=== PATIENT | female | born 1990 | race American Indian/Alaskan Native ===

== ENCOUNTER 2017-03-15 12:55 | Emergency (ER) | payer BC, MEDICAID ==
[2017-03-15 13:33] VITALS: BMI 29.2
--- NOTE | 2017-03-15 13:42 | C.PDOC ---
History Of Present Illness 26 yo female, no prior hx, presents with vaginal bleeding. as per pt, had "an irregular period" last week, which was "light". pt now states she has mild spotting. pt denies heavy bleeding. pt denies any fevers, urinary changes, or discharge. pt states she is sexually active, and "could be ". pt states she was unable to get a outpt OB appointment, so came to er. Time Seen by Provider: 03/15/17 13:21 Chief Complaint (Nursing): Female Genitourinary Past Medical History Reviewed: Historical Data, Nursing Documentation, Vital Signs Family History: States: Unknown Family Hx - Social History Hx Tobacco Use: Yes Hx Alcohol Use: Yes Hx Substance Use: No - Immunization History Hx Tetanus Toxoid Vaccination: No Hx Influenza Vaccination: No Hx Pneumococcal Vaccination: No Review Of Systems Gastrointestinal: Positive for: Abdominal Pain Genitourinary: Positive for: Vaginal Bleeding Physical Exam - Physical Exam Appears: Well, No Acute Distress Skin: Normal Color, Warm, Dry Eye(s): bilateral: Normal Inspection, PERRL, EOMI Nose: Normal Throat: Normal Neck: Normal Cardiovascular: Rhythm Regular Respiratory: Normal Breath Sounds Gastrointestinal/Abdominal: Normal Exam, Soft, Tenderness (minimal suprapubic), No Guarding, No Rebound Back: Normal Inspection Pelvic: Normal External Exam, Normal Speculum Exam, Normal Bimanual Exam, No Vaginal Bleeding, No Cervical Motion Tenderness, Other (chaparoned by collin caraballo) Extremity: Normal ROM Medical Decision Making Medical Decision Making: ucg neg in er. abd soft minimal ttp. pelvic neg. suspect anovulatory bleeding vs other benign eitology. pt on phone in nad, smiling 200: pt reassesseDL abd soft in nad. ucg neg. pt denies heavy bleeding. no adenxal ttp. no discharge. advise outpt f/u and return precautions. Disposition - Disposition Referrals: [facility] [Outside] [facility] [Outside] [facility] [Outside] Tacho Nielsen [Staff Provider] - Mary Ashraf MD [Staff Provider] - Disposition: HOME/ ROUTINE Disposition Time: 14:04 Condition: STABLE Additional Instructions: please follow up outpt with obgyn. return to er with worsening symptoms or concerns. Instructions: Menstruation (ED), Dysfunctional Uterine Bleeding (ED) - Clinical Impression Clinical Impression: Vaginal bleeding
[2017-03-15 13:55] LABS: HCG,QUALITATIVE URINE NEGATIVE (NEGATIVE)
[2017-03-15 14:00] LABS: SQUAMOUS EPITHIAL 1 /hpf (0-5); URINE BILIRUBIN NEGATIVE (NEGATIVE); URINE BLOOD NEGATIVE (NEGATIVE); URINE CLARITY Clear (Clear); URINE COLOR Straw (YELLOW); URINE GLUCOSE (UA) NORMAL (Normal); URINE LEUKOCYTE ESTERASE NEG Leu/uL (Negative); URINE NITRATE NEGATIVE (NEGATIVE); URINE PROTEIN NEGATIVE (NEGATIVE); URINE UROBILINOGEN NORMAL mg/dL (0.2-1.0)
[2017-03-15 14:05] VITALS: BP 135/91; PULSE 82; RESP 18; TEMP 97.6; O2SAT 100
== END 2017-03-15 14:11 | disposition home or self-care (01) ==
LOC: C.ER 12:55
DX: N93.9 Abnormal uterine and vaginal bleeding, unspecified (principal)